=== PATIENT | male | born 1955 | race Two or more races ===

== ENCOUNTER → 2017-04-13 | Outpatient (CLI) | payer MEDICARE ==
[~2017-04-13] MED LIST: ANTACID PO; FLOMAX0.4 MG PO; ROLAIDS CHEWAB1 EACH PO
--- NOTE | ~2017-04-13 | PUL ---
PATIENT'S NAME: GONZÁLEZ MARISCAL [facility] AGE: 61 Y [address] ROOM: [place] [address] LOCATION: [facility] ADMIT DATE: 04/13/2017 Pulmonary DISCHARGE DATE: FAMILY PHYSICIAN: Florentino Guido MD ATTENDING PHYSICIAN: Florentino Guido NAME OF PROCEDURE: Sleep Study PROCEDURE DATE: 04/13/17 TECH: DEBI Galvan TEST #: [facility] [place] [id number] TECHNICAL PARAMETERS: The patient was studied using International 10/20 measuring system. While the patient was studied, there was continuous monitoring of EEG (8 leads), EOG (2 leads), EKG (3 leads), submental EMG (3 leads), tibial (4 leads), respiratory inductive plethysmography (RIP) for thoracic and abdominal effort, oral and nasal airflow with a thermocouple and pressure transducer, and oximetry. The tablet technician also performed visual and auditory observations noting things like body position, patient's status, breath sounds, artifact, snoring level and patient comments. Continuous sound was monitored using a 2-way speaker system and video monitoring was performed using an infrared camera. Review of the entire study was performed epoch by epoch utilizing a single epoch and multiple epoch capability sleep system. MEDICAL HISTORY: Patient is a 61-year-old overweight male with daytime sleepiness and snoring. SLEEP STAGE SUMMARY: The patient was studied for 456 minutes of which he slept 402 minutes. He fell asleep in 5 minutes and slept for 88% of the night. Sleep architecture revealed a decline in slow wave sleep. RESPIRATORY SUMMARY: Oxygen saturations ranged from 61%-94%. Prior to initiating CPAP there were 90 apneas and 62 hypopneas. CPAP was initiated and titrated to 16 cm with good control of the respiratory events. EKG SUMMARY: No dysrhythmias were noted. LIMB MOVEMENT SUMMARY: No clinically relevant periodic limb movements were noted. SUMMARY: Severe obstructive sleep apnea responsive to a CPAP at 16 cm. PLAN: Patient will receive results from the ordering provider. PATIENT'S NAME: GONZÁLEZ MARISCAL [facility] AGE: 61 Y [address] ROOM: [place] [address] LOCATION: [facility] ADMIT DATE: 04/13/2017 Pulmonary DISCHARGE DATE: FAMILY PHYSICIAN: Florentino Guido MD ATTENDING PHYSICIAN: Florentino Guido MD ACE FINLEY/ /[id number] dtt: 04/30/17 1301 Antonia David E. dtd: 04/15/17 1129
== END | disposition disaster alternative care site (69) ==
LOC: GSLP 20:12
DX: G47.10 Hypersomnia, unspecified (principal); G47.33 Obstructive sleep apnea (adult) (pediatric)